=== PATIENT | female | born 1950 | race Caucasian/White ===

== ENCOUNTER 2017-05-31 03:24 | Emergency (ER) | payer OTHER ==
[~2017-05-31] VITALS: Ht 170.2 cm; Wt 113.4 kg
[2017-05-31 04:15] LABS: CREATININE 1.3 mg/dL (0.6-1.3); POTASSIUM 2.9 mmol/L (3.5-5.1)
[2017-05-31 04:32] LABS: BILIRUBIN,DIRECT 0.1 mg/dL (0.0-0.2); BILIRUBIN,TOTAL 0.6 mg/dL (0.2-1.0); TOTAL PROTEIN, SERUM 8.2 g/dL (6.4-8.2)
[2017-05-31 04:35] LABS: BASOPHILS % (AUTO) 0.2 % (0.0-2.0); EOSINOPHILS # (AUTO) 0.1 K/uL (0.0-0.7); EOSINOPHILS % (AUTO) 0.7 % (0.0-7.0); HEMATOCRIT 46.8 % (37-47); HEMOGLOBIN 16.4 G/DL (12.0-16.0); LYMPHOCYTES # (AUTO) 2.2 K/UL (0.8-4.8); LYMPHOCYTES % (AUTO) 14.8 % (20.5-51.5); MEAN CORPUSCULAR HEMOGLOBIN 31.6 UUG (27.0-31.0); MEAN CORPUSCULAR HGB CONC 35 g/dL (32.0-37.0); MEAN CORPUSCULAR VOLUME 90.3 FL (81.0-99.0); MONOCYTES # (AUTO) 1.5 K/UL (0.1-1.30); MONOCYTES % (AUTO) 9.8 % (0.0-11.0); NEUTROPHILS # (AUTO) 11.3 K/UL (1.8-8.9); NEUTROPHILS % (AUTO) 74.5 % (38.5-71.5); PLATELET COUNT (AUTO) 243 K/UL (150-450); RED BLOOD CELL COUNT(AUTO) 5.18 MIL/UL (4.2-5.4); WHITE BLOOD COUNT (AUTO) 15.1 K/UL (4.0-11.2)
--- NOTE | 2017-05-31 04:47 | NUR ---
Patient in bed, no acute distress noted. no complaint of chest pain at this time. All patient needs attended and met. Son at bedside.
--- NOTE | 2017-05-31 05:00 | NUR ---
CALLED [facility],SPOKE WITH ABDON. WILL HAVE [facility] CALL DR MONTANEZ
--- NOTE | 2017-05-31 05:04 | NUR ---
Dr. Menon from [facility] called back and Dr. Bernal speaking with him
[2017-05-31 05:34] VITALS: BP 110/69
[2017-05-31] MEDS ORDERED: OMEP20CA10 PO (05:35)
[2017-05-31] MEDS ORDERED: ATOR10TA PO (05:35)
[2017-05-31] MEDS ORDERED: ATEN25TA PO (05:35)
[2017-05-31] MEDS ORDERED: TRIA1CAP2 PO (05:35)
--- NOTE | 2017-05-31 06:14 | NUR ---
Per Sintia at [facility], pt to be transferred to [facility] to the ER. Dr. Griffith is accepting. Number to call report is [phone]. [facility]ta for ACLS transport is approx 45 mins.
--- NOTE | 2017-05-31 06:23 | NUR ---
Report given to Denise Santana at [facility]
--- NOTE | 2017-05-31 06:53 | NUR ---
Patient Tranfers to outside Facility Physician: Dr Griffith Location: [facility] Report given to Denise MARTIN at [facility] ER. Patient picked up by [facility] ambulance Unit [id number]. All belongings taken with patient. Daughter going with patient in ambulance. Peripheral IV intact for transfer per [facility] request. No further distress noted. Skin assessment complete with 2 RN, no skin issues noted. Chart sent with patient, provided to Director Call Bhavesh for transport to [facility] ER
== END 2017-05-31 07:13 | disposition short-term general hospital (02) ==
LOC: ER 03:32
DX: I20.0 Unstable angina (principal); M79.7 Fibromyalgia; I10 Essential (primary) hypertension; E78.5 Hyperlipidemia, unspecified; Z88.2 Allergy status to sulfonamides
CPT/HCPCS: 36415; 70030-TC; 71010; 85025; 85730; 93005; A4663; J1650; J2405; J3490

== ENCOUNTER 2022-04-19 10:20 | Emergency (ER) | payer OTHER ==
[~2022-04-19] VITALS: Ht 170.2 cm; Wt 113.4 kg
[~2022-04-19 10:20] MED LIST: ATEN25TA PO; ATOR10TA PO; OMEP20CA15 PO; TRIA1CAP2 PO
[2022-04-19] MEDS ORDERED: IV NORMAL SALINE 1000 ML BAG IV ONE ×2 (10:45→13:15)
[2022-04-19 11:15] LABS: CARBON DIOXIDE 29 mmol/L (21-32); CHLORIDE 99 mmol/L (98-107); CREATININE 1.2 mg/dL (0.6-1.3); GLUCOSE 100 mg/dL (74-106); POTASSIUM 3.2 mmol/L (3.5-5.1); UREA NITROGEN, BLOOD 18 mg/dL (7-18)
[2022-04-19 11:23] LABS: HEMATOCRIT 28.9 % (31.2-41.9); MEAN CORPUSCULAR HEMOGLOBIN 30.7 uug (24.7-32.8); MEAN CORPUSCULAR VOLUME 88.1 fL (75.5-95.3); PLATELET COUNT (AUTO) 327 K/uL (179-408)
[2022-04-19 11:28] LABS: ALANINE AMINOTRANSFERASE 19 U/L (14-59); ALKALINE PHOSPHATASE 62 U/L (50-136); ASPARTATE AMINOTRANSFERASE 24 U/L (15-37); BILIRUBIN,DIRECT 0.2 mg/dL (0.0-0.2); BILIRUBIN,TOTAL 0.7 mg/dL (0.2-1.0); TOTAL PROTEIN, SERUM 6.8 g/dL (6.4-8.2)
--- NOTE | 2022-04-19 11:41 | NUR ---
PT IS IN ROOM #2A. DR MUHAMMAD EVALUATED THE PT.
[2022-04-19] MEDS ORDERED: POTASSIUM CHLORIDE 20 MEQ TAB.PRT.SR PO ONE (12:30)
[2022-04-19 16:10] VITALS: BP 139/81
--- NOTE | 2022-04-19 16:10 | NUR ---
PT WAS D/C'd TO HOME. D/C INSTRUCTIONS GIVEN TO THE PT BY DR MUHAMMAD.
== END 2022-04-19 16:12 | disposition home or self-care (01) ==
LOC: ER 10:20
DX: I95.1 Orthostatic hypotension (principal); E87.6 Hypokalemia; E86.0 Dehydration; R42 Dizziness and giddiness; Z85.3 Personal history of malignant neoplasm of breast; C53.9 Malignant neoplasm of cervix uteri, unspecified; R11.10 Vomiting, unspecified; R19.7 Diarrhea, unspecified; Z92.3 Personal history of irradiation; Z92.21 Personal history of antineoplastic chemotherapy; E78.5 Hyperlipidemia, unspecified; K21.9 Gastro-esophageal reflux disease without esophagitis; F41.9 Anxiety disorder, unspecified; Z88.2 Allergy status to sulfonamides; Z79.899 Other long term (current) drug therapy
CPT/HCPCS: 99285; 96360; 71045; 96361; 80076; 80048; 83735; 85025; 84484; 36415; 93005; J7040; A4663

== ENCOUNTER 2022-05-04 17:39 | Emergency (ER) | payer OTHER ==
[~2022-05-04] VITALS: Ht 167.6 cm; Wt 95.3 kg
[2022-05-04] MEDS ORDERED: IV NORMAL SALINE 1000 ML BAG IV ONE (18:00)
[2022-05-04] MEDS ORDERED: ONDANSETRON 4 MG/2 ML VIAL IV ONE (18:00)
[2022-05-04] MEDS ORDERED: ONDANSETRON 4 MG/2 ML VIAL ONE (18:16)
--- NOTE | 2022-05-04 18:20 | NUR ---
Patient seen by MD upon arrival.
[2022-05-04] MEDS ORDERED: LETR2.5T PO (18:23)
[2022-05-04] MEDS ORDERED: ACETAMINOPHEN 325 MG TABLET PO ONE (18:30)
[2022-05-04 18:55] LABS: HEMATOCRIT 27.8 % (31.2-41.9); MEAN CORPUSCULAR HEMOGLOBIN 31.5 uug (24.7-32.8); MEAN CORPUSCULAR VOLUME 92.3 fL (75.5-95.3); PLATELET COUNT (AUTO) 174 K/uL (179-408)
[2022-05-04 19:10] LABS: CARBON DIOXIDE 25 mmol/L (21-32); CHLORIDE 102 mmol/L (98-107); CREATININE 1.4 mg/dL (0.6-1.3); GLUCOSE 120 mg/dL (74-106); POTASSIUM 3.4 mmol/L (3.5-5.1); UREA NITROGEN, BLOOD 25 mg/dL (7-18)
[2022-05-04 19:18] LABS: ALANINE AMINOTRANSFERASE 24 U/L (14-59); ALKALINE PHOSPHATASE 77 U/L (50-136); ASPARTATE AMINOTRANSFERASE 27 U/L (15-37); BILIRUBIN,DIRECT 0.5 mg/dL (0.0-0.2); BILIRUBIN,TOTAL 1.3 mg/dL (0.2-1.0); TOTAL PROTEIN, SERUM 6.4 g/dL (6.4-8.2)
[2022-05-04] MEDS: MAGNESIUM SULFATE/D5W 100 ML IV SCH ×3 (19:30→23:29)
--- NOTE | 2022-05-04 19:35 | NUR ---
Report given to shift leader nurse.
[2022-05-04 20:09] LABS: *BLOOD, URINE 2+ (NEGATIVE); *CLARITY,URINE CLOUDY (CLEAR); *COLOR,URINE YELLOW (YELLOW); *KETONES,URINE TRACE (NEGATIVE); LEUKOCYTE ESTERASE ,URINE 1+ (NEGATIVE); NITRITE, URINE NEGATIVE (NEGATIVE); PH,URINE 5.5 (5.0-8.0); UGLUCOSE NEGATIVE (NEGATIVE)
[2022-05-04 20:10] LABS: *BILIRUBIN,URIN 1+ (NEGATIVE)
[2022-05-04] MEDS ORDERED: CEFTRIAXONE 1 G in IV DEXTROSE 5% 50 ML IV ONE (20:30)
[2022-05-04] MEDS ORDERED: IV NS 1000 ML 1,000 ML IV ONE (20:30)
[2022-05-04 20:53] LABS: BACTERIA,URINE FEW /HPF (NONE SEEN); SQUAMOUS EPITHELIAL CELL,UR FEW /HPF (NONE SEEN); WBC,URINE 80-100 /HPF (0-3)
[2022-05-04] MEDS ORDERED: MAGNESIUM SULFATE/D5W 100 ML ONE (21:54)
[2022-05-04] MEDS ORDERED: CEFTRIAXONE /D5W 50ML IVPB **ER PYXIS IV ONE (21:54)
[2022-05-04] MEDS ORDERED: MAGNESIUM SULFATE/D5W 200 ML ONE (22:55)
[2022-05-04] MEDS ORDERED: PROCHLORPERAZINE EDISYLATE 10 MG/2 ML VIAL ONE (23:12)
[2022-05-04] MEDS ORDERED: PROCHLORPERAZINE EDISYLATE 10 MG/2 ML VIAL IV ONE (23:15)
--- NOTE | 2022-05-05 00:09 | NUR ---
TRANSFER INFO: [facility], m/s room 4304 bed B [phone] - call for report
[2022-05-05] MEDS ORDERED: ONDANSETRON 4 MG/2 ML VIAL IV ONE (00:30)
[2022-05-05] MEDS ORDERED: IV NS 1000 ML 1,000 ML IV ONE (00:30)
[2022-05-05] MEDS ORDERED: ONDANSETRON 4 MG/2 ML VIAL ONE (01:11)
--- NOTE | 2022-05-05 01:16 | NUR ---
Gave SBAR report to [facility].
--- NOTE | 2022-05-05 01:21 | NUR ---
Gave SBAR report to Piero, nurse from [facility].
== END 2022-05-05 01:55 | disposition short-term general hospital (02) ==
LOC: ER 17:39
DX: R11.2 Nausea with vomiting, unspecified (principal); E86.0 Dehydration; R53.1 Weakness; Z20.822 Contact with and (suspected) exposure to COVID-19; C53.9 Malignant neoplasm of cervix uteri, unspecified; Z92.3 Personal history of irradiation; Z88.2 Allergy status to sulfonamides; Z90.710 Acquired absence of both cervix and uterus; M79.7 Fibromyalgia; F41.9 Anxiety disorder, unspecified; K21.9 Gastro-esophageal reflux disease without esophagitis; E78.5 Hyperlipidemia, unspecified; I10 Essential (primary) hypertension; M19.90 Unspecified osteoarthritis, unspecified site; Z85.3 Personal history of malignant neoplasm of breast
CPT/HCPCS: 99285; 74176; 96365; 96366; 96375 ×2; 87426; 80076; 80048; 81001; 83735; 85025; 87040; 87086; 84484; 36415; 93005; 96368; 83605; 96361; 96376; J0696; J3475 ×2; J2405 ×2; J0780; J7040 ×2; A4663